=== PATIENT | male | born 1945 | race Caucasian/White ===

== ENCOUNTER 2017-06-05 10:19 | Emergency (ER) | payer MEDICARE, OTHER ==
[2017-06-05 10:32] VITALS: TEMP 98.1
--- NOTE | 2017-06-05 10:53 | C.PDOC ---
History Of Present Illness 71 y/o male presents to ED with c/o R shoulder pain, radiating down the right arm, and shooting up the right side of his neck for 2 weeks. He denies fall or injuries, fever, chest pain, SOB, or rashes. Time Seen by Provider: 06/05/17 10:42 Chief Complaint (Nursing): Upper Extremity Problem/Injury History Per: Patient History/Exam Limitations: no limitations Onset/Duration Of Symptoms: Days Current Symptoms Are (Timing): Still Present Quality: "Pain" Severity: Moderate Recent travel outside of the [place]: No Past Medical History Reviewed: Historical Data, Nursing Documentation, Vital Signs Vital Signs: Last Vital Signs Temp 98.1 F 06/05/17 10:30 Pulse 75 06/05/17 11:21 Resp 18 06/05/17 11:21 BP 145/75 06/05/17 11:21 Pulse Ox 96 06/05/17 13:06 - Medical History PMH: No Chronic Diseases Family History: States: No Known Family Hx - Social History Hx Tobacco Use: Yes Hx Alcohol Use: Yes Hx Substance Use: No - Immunization History Hx Influenza Vaccination: No Hx Pneumococcal Vaccination: No Review Of Systems Except As Marked, All Systems Reviewed And Found Negative. Constitutional: Negative for: Fever, Chills Cardiovascular: Negative for: Chest Pain Respiratory: Negative for: Cough, Shortness of Breath Gastrointestinal: Negative for: Nausea, Vomiting Musculoskeletal: Positive for: Neck Pain, Shoulder Pain, Arm Pain Skin: Negative for: Rash Neurological: Negative for: Weakness, Numbness, Headache Physical Exam - Physical Exam Appears: Well, Non-toxic, No Acute Distress, Other (comfortable) Skin: Normal Color, Warm, Dry Head: Normacephalic Oral Mucosa: Moist Neck: Normal, Normal ROM, No Midline Cervical Tenderness, No Paracervical Tenderness, No Step Off Deformity, Supple Chest: Symmetrical, No Tenderness Cardiovascular: Rhythm Regular Respiratory: Normal Breath Sounds, No Rales, No Rhonchi, No Wheezing Gastrointestinal/Abdominal: Normal Exam, Bowel Sounds, Soft, No Tenderness Back: Normal Inspection, No Vertebral Tenderness, No Paraspinal Tenderness Extremity: Normal ROM, No Tenderness, Capillary Refill (< 2 sec all digits ), No Deformity, No Swelling Extremity: Bilateral: Atraumatic, Normal Color And Temperature, Normal ROM Pulses: Left Radial: Normal, Right Radial: Normal Neurological/Psych: Oriented x3, Normal Motor, Normal Sensation ED Course And Treatment O2 Sat by Pulse Oximetry: 96 (RA) Pulse Ox Interpretation: Normal Progress Note: Patient given IM Toradol and PO Flexeril. Explained to patient that his symptoms are due to cervical radiculopathy. Reevaluation Time: 11:15 Reassessment Condition: Improved (Patient reassessed, pain has improved and he feels better. Patient given Rxs for Naprosyn, Flexeril and was instructed to follow up with PMD in 1-2 days. He understands if symptoms persist he should request MRI of Cspine from PMD. Patient understands he should return to ED if symptoms worsen.) Disposition Counseled Patient/Family Regarding: Diagnosis, Need For Followup, Rx Given - Disposition Referrals: Jhoan Laws MD [Medical Doctor] - Disposition: HOME/ ROUTINE Disposition Time: 11:15 Condition: STABLE Additional Instructions: FOLLOW UP WITH YOUR DOCTOR IN 1-2 DAYS USE MEDICATIONS DIRECTED IF SYMPTOMS PERSIST, HAVE YOUR DOCTOR SEND YOU FOR MRI OF CERVICAL SPINE RETURN TO ER IF SYMPTOMS WORSEN Prescriptions: Cyclobenzaprine [Flexeril] 10 mg PO BID PRN #15 tab PRN Reason: Muscle Spasm Naproxen 375 mg PO BID PRN #20 tablet PRN Reason: pain Instructions: Cervical Radiculopathy (ED) Forms: [employer] (Indonesian) Print Language: HEBREW - POA Present On Arrival: None - Clinical Impression Clinical Impression: Cervical radiculopathy - Scribe Statement The provider has reviewed the documentation as recorded by the Scribe SM All medical record entries made by the Scribe were at my direction and personally dictated by me. I have reviewed the chart and agree that the record accurately reflects my personal performance of the history, physical exam, medical decision making, and the department course for this patient. I have also personally directed, reviewed, and agree with the discharge instructions and disposition.
[2017-06-05 11:21] VITALS: BP 145/75; PULSE 75; RESP 18
[2017-06-05 13:06] VITALS: O2SAT 96
== END 2017-06-05 11:30 | disposition home or self-care (01) ==
LOC: C.ER 10:19
DX: M54.12 Radiculopathy, cervical region (principal)
CPT/HCPCS: 96372; 99284; J1885

== ENCOUNTER 2018-02-17 09:33 | Observation (INO) | payer MEDICARE, OTHER ==
[2018-02-17] MEDS ORDERED: Sodium Chloride 0.9% 1,000 ML IV ONE (10:30)
--- NOTE | 2018-02-17 10:32 | C.PDOC ---
History Of Present Illness 72 y/o male, w/PMhx of HTN and diabetes, presents to the ER complaining of dizziness which began in the morning today. Patient states that he was getting out of bed when he started to feel dizzy. Patient reports that he was unsteady and he felt like he was going to fall. He notes that the dizziness is worse with head movement. Denies having fever, CP, SOB,abdominal pain, trauma, tinutis, and syncope. Time Seen by Provider: 02/17/18 09:54 Chief Complaint (Nursing): Dizziness/Lightheaded History Per: Patient History/Exam Limitations: no limitations Onset/Duration Of Symptoms: Hrs Current Symptoms Are (Timing): Still Present Severity: Moderate Past Medical History Reviewed: Historical Data, Nursing Documentation, Vital Signs Vital Signs: Last Vital Signs Temp 98.4 F 02/18/18 16:06 Pulse 62 02/18/18 16:06 Resp 20 02/18/18 16:06 BP 124/75 02/18/18 16:06 Pulse Ox 99 02/18/18 16:56 - Medical History PMH: Diabetes, HTN Other Surgeries: Hx of surgeries Family History: States: No Known Family Hx - Social History Hx Tobacco Use: Yes Hx Alcohol Use: Yes Hx Substance Use: No - Immunization History Hx Influenza Vaccination: No Hx Pneumococcal Vaccination: No Review Of Systems Except As Marked, All Systems Reviewed And Found Negative. Constitutional: Negative for: Fever, Chills Cardiovascular: Negative for: Chest Pain Respiratory: Negative for: Shortness of Breath Gastrointestinal: Negative for: Abdominal Pain Neurological: Positive for: Dizziness Physical Exam - Physical Exam Appears: Non-toxic, No Acute Distress Skin: Normal Color, Warm, Dry Head: Atraumatic, Normacephalic Eye(s): bilateral: Normal Inspection, PERRL, EOMI, Other (No nystagnus) Nose: Normal Oral Mucosa: Moist Neck: Normal ROM, Supple Chest: Symmetrical Cardiovascular: Rhythm Regular Respiratory: Normal Breath Sounds, No Rales, No Rhonchi, No Wheezing Gastrointestinal/Abdominal: Normal Exam, Soft, No Tenderness, No Guarding, No Rebound Back: No CVA Tenderness Neurological/Psych: Oriented x3, Normal Speech, Normal Cognition, Normal Cranial Nerves (2-12 grossly intact), No Cerebellar Signs Gait: Unable To Assess ED Course And Treatment - Laboratory Results Result Diagrams: 02/17/18 10:44 07/09/18 10:44 ECG: Interpreted By Me (Dr Marc), Viewed By Me ECG Rhythm: Sinus Rhythm Rate From EC O2 Sat by Pulse Oximetry: 99 (RA) - Radiology CXR: Interpreted by Me, Viewed By Me CXR Interpretation: Yes: No Acute Disease - CT Scan/US CT- Head Other Rad Studies (CT/US): Read By Radiologist, Radiology Report Reviewed CT/US Interpretation: PROCEDURE: CT HEAD WITHOUT CONTRAST. HISTORY: R/O Bleed. COMPARISON: None available. TECHNIQUE: Axial computed tomography images were obtained through the head/brain without intravenous contrast. Radiation dose: Total exam DLP = 1175.8 mGy-cm. This CT exam was performed using one or more of the following dose reduction techniques: Automated exposure control, adjustment of the mA and/or kV according to patient size, and/ or use of iterative reconstruction technique. FINDINGS: HEMORRHAGE: No intracranial hemorrhage. BRAIN: No mass effect or edema. No atrophy or chronic microvascular ischemic changes. Left basal ganglia lacunar infarctions. VENTRICLES: Unremarkable. No hydrocephalus. CALVARIUM: Unremarkable. PARANASAL SINUSES: Unremarkable as visualized. No significant inflammatory changes. MASTOID AIR CELLS: Unremarkable as visualized. No inflammatory changes. OTHER FINDINGS: None. IMPRESSION: No acute intracranial pathology. Progress Note: Labs, EKG,CXR, CT- Head ordered and reviewed. Patient treated with Meclizine PO and IV Fluids. On re-evaluation, pt notes he still feels dizzy. Unable to ambulate. Case discussed with Dr Child, who admits for Dr Maxwell, agreed upon admission. Disposition - Disposition Disposition: HOSPITALIZED Disposition Time: 16:00 Condition: STABLE - Clinical Impression Clinical Impression: Dizziness - PA / INDEPENDENT AGENT MUSIC EDUCATION / Resident Statement MD/DO has reviewed & agrees with the documentation as recorded. - Scribe Statement The provider has reviewed the documentation as recorded by the Kiet Hobbs Provider Attestation All medical record entries made by the Scribe were at my direction and personally dictated by me. I have reviewed the chart and agree that the record accurately reflects my personal performance of the history, physical exam, medical decision making, and the department course for this patient. I have also personally directed, reviewed, and agree with the discharge instructions and disposition.
[2018-02-17 10:54] LABS: BASO % 0.8 % (0.0-2.0); EOS # 0.4 K/uL (0.0-0.7); EOS % 6.8 % (0.0-4.0); HEMOGLOBIN 14.1 g/dL (12.0-18.0); LYMPH # 2.2 K/uL (1.0-4.3); LYMPH % 39.4 % (20.0-40.0); MEAN CELL VOLUME 93.6 fL (80.0-94.0); MEAN CORPUSCULAR HEMOGLOBIN 32.1 pg (27.0-31.0); MEAN CORPUSCULAR HGB CONC 34.3 g/dL (33.0-37.0); MEAN PLATELET VOLUME 9.3 fL (7.2-11.7); MONO # 0.3 K/uL (0.0-0.8); MONO % 4.9 % (0.0-10.0); NEUT # 2.7 K/uL (1.8-7.0); NEUT % 48.1 % (50.0-75.0); RBC 4.4 Mil/uL (4.40-5.90); RED CELL DISTRIBUTION WIDTH 13.6 % (11.5-14.5); WHITE BLOOD COUNT 5.6 K/uL (4.8-10.8)
[2018-02-17 11:09] LABS: SQUAMOUS EPITHIAL < 1 /hpf (0-5); URINE BILIRUBIN NEGATIVE (NEGATIVE); URINE BLOOD NEGATIVE (NEGATIVE); URINE CLARITY Clear (Clear); URINE COLOR Yellow (YELLOW); URINE GLUCOSE (UA) 1+ mg/dL (Normal); URINE LEUKOCYTE ESTERASE NEG Leu/uL (Negative); URINE PROTEIN 1+ mg/dL (NEGATIVE); URINE UROBILINOGEN NORMAL mg/dL (0.2-1.0)
[2018-02-17 11:22] LABS: ALB/GLOB RATIO 1.5 (1.0-2.1); ALBUMIN 4.3 g/dL (3.5-5.0); ALT/SGPT 36 U/L (21-72); AST/SGOT 33 U/L (17-59); BLOOD UREA NITROGEN 16 mg/dL (9-20); CALCIUM 9.2 mg/dl (8.6-10.4); GFR AFRICAN-AMERICAN > 60; GFR NON-AFRICAN AMERICAN > 60
--- NOTE | 2018-02-17 11:24 | CT ---
PROCEDURE: CT HEAD WITHOUT CONTRAST. HISTORY: R/O Bleed COMPARISON: None available. TECHNIQUE: Axial computed tomography images were obtained through the head/brain without intravenous contrast. Radiation dose: Total exam DLP = 1175.8 mGy-cm. This CT exam was performed using one or more of the following dose reduction techniques: Automated exposure control, adjustment of the mA and/or kV according to patient size, and/or use of iterative reconstruction technique. FINDINGS: HEMORRHAGE: No intracranial hemorrhage. BRAIN: No mass effect or edema. No atrophy or chronic microvascular ischemic changes. Left basal ganglia lacunar infarctions. VENTRICLES: Unremarkable. No hydrocephalus. CALVARIUM: Unremarkable. PARANASAL SINUSES: Unremarkable as visualized. No significant inflammatory changes. MASTOID AIR CELLS: Unremarkable as visualized. No inflammatory changes. OTHER FINDINGS: None. IMPRESSION: No acute intracranial pathology.
[2018-02-17] MEDS ORDERED: Sodium Chloride 0.9% 1,000 ML ONE (11:29)
--- NOTE | 2018-02-17 11:30 | RAD ---
PROCEDURE: CHEST RADIOGRAPH, 1 VIEW HISTORY: SOB COMPARISON: None available. FINDINGS: LUNGS: Clear. PLEURA: No pneumothorax or pleural fluid seen. CARDIOVASCULAR: Atherosclerotic aortic calcifications. Cardiomediastinal silhouette enlarged. OSSEOUS STRUCTURES: Degenerative changes. VISUALIZED UPPER ABDOMEN: Normal. OTHER FINDINGS: None. IMPRESSION: No active disease.
[2018-02-17 11:33] LABS: CK-MB 1.19 ng/mL (0.0-3.38)
[2018-02-17 18:44] VITALS: RESP 20
--- NOTE | 2018-02-17 19:50 | CARD ---
APPROVED REPORT EKG Measurement Heart [id number] <Conclusion> Sinus bradycardia with 1st degree AV block Otherwise normal ECG
[2018-02-18] MEDS: Enoxaparin 40 mg Syringe SC SCH (09:14)
--- NOTE | 2018-02-18 13:23 | VASCLAB ---
Date of service: 02/18/2018 PROCEDURE: HISTORY: Dizziness COMPARISON: None available. TECHNIQUE: Grayscale and duplex Doppler evaluation of the cervical carotid and vertebral arteries were performed. The common carotid, carotid bifurcations and cervical Internal Carotid Artery (ICA) and proximal External Carotid Artery (ECA) were evaluated. The vertebral arteries were evaluated for gross patency and flow direction. Report prepared by Grayson Salas, BS, RVT FINDINGS: RIGHT CAROTID ARTERIES: 1. Common Carotid Artery: No significant focal plaque formation of the right common carotid artery. Maximum Peak Systolic velocity: 75 cm/sec: End-diastolic velocity 13 cm/sec. 2. Carotid Bifurcation: plaque formation. Maximum Peak Systolic velocity: 64 cm/sec: End-diastolic velocity 13 cm/sec. 3. Internal Carotid Artery: Plaque description: 3.1. Proximal Segment: Peak systolic velocity 62 cm/sec: End-diastolic velocity 21 cm/sec - % stenosis 0-15% 3.2. Middle Segment: Peak systolic velocity 69 cm/sec: End-diastolic velocity 22 cm/sec - % stenosis 0-15% 3.3. Distal Segment: Peak systolic velocity 49 cm/sec: End-diastolic velocity 18 cm/sec - % stenosis 0-15% 4. External Carotid Artery: No significant focal plaque formation. Peak systolic velocity 81 cm/sec 5. ICA/CCA Ratio: 0.9 LEFT CAROTID ARTERIES: 1. Common Carotid Artery: No significant focal plaque formation of the left common carotid artery. Maximum Peak Systolic velocity: 93 cm/sec: End-diastolic velocity 13 cm/sec. 2. Carotid Bifurcation: plaque formation. Maximum Peak Systolic velocity: 53 cm/sec: End-diastolic velocity 12 cm/sec. 3. Internal Carotid Artery: Plaque description: 3.1. Proximal Segment: Peak systolic velocity 59 cm/sec: End-diastolic velocity 19 cm/sec - % stenosis 0-15% 3.2. Middle Segment: Peak systolic velocity 78 cm/sec: End-diastolic velocity 29 cm/sec - % stenosis 0-15% 3.3. Distal Segment: Peak systolic velocity 46 cm/sec: End-diastolic velocity 18 cm/sec - % stenosis 0-15% 4. External Carotid Artery: No significant focal plaque formation. Peak systolic velocity 105 cm/sec 5. ICA/CCA Ratio: 0.9 VERTEBRAL ARTERIES: 1. Right Vertebral Artery: The right vertebral artery flow direction is antegrade. 2. Left Vertebral Artery: The left vertebral artery flow direction is antegrade. OTHER FINDINGS: 1. Right Brachial Blood pressure: 136 mmHg. 2. Left Brachial Blood pressure: 128 mmHg. IMPRESSION: RIGHT: Duplex scan does not suggest hemodynamically significant stenosis of the right extracranial carotid arteries. LEFT: Duplex scan does not suggest hemodynamically significant stenosis of the left extracranial carotid arteries.
--- NOTE | 2018-02-18 16:44 | CP.PCM.CON ---
History of Present Illness - History of Present Illness History of Present Illness: Dizziness Pulmonology consulted for history of smoking and possible sleep apnea HPI: 72 year old male with past medical history of hypertension and diabetes presented to the ER complaining of dizziness. Patient reports that this pain started this morning as he was getting out of bed. Patient reports that he felt the room spinning and that he was loosing his balance. Patient reports that he has never felt like this before. Patient denies any ringing in ears, daytime somnolence, chest pain, shortness of breath or sleeping problems. Patient reports that he currently feels better. Patient is in no acute distress. Patient is afebrile. PMH: hypertension and diabetes mellitus PSH: Kidney stone removal 37 years ago Meds: Glipizide 10 mg PO BIDAC Enoxaparin Sodium 40 mg SC Daily Losartan Potassium 50 mg PO Daily Metformin Hcl 1000 mg PO BIDCC Pioglitazone Hcl 15 mg PO Daily Social: Cigarettes- quit 10 years ago, Cigars - current, 1-2 day ROS: Constitutional: Patient denies fever and chills. Cardiovascular: Patient denies chest pain, palpitations. Respiratory: Patient denies shortness of breath, sough, snoring, daytime somnolence. Gastrointestinal: Patient denies nausea, vomiting, diarrhea. Neurological: Headache, AAO X 3, normal speech Physical Exam HEENT: Atraumatic, normocephalic, mucuous membranes moist Repiratory: Clear to auscultation bilaterally. No wheezing or rhonchi. No use of accessory muscles. Cardiovascular: +S1/ S2, regular rate and rhythm GI: Normal bowel sounds in all 4 quadrants, no tenderness, no distention Extremities: No LE edema Neurological: Alert, awake, oriented X3 Assessment: 72 year old male with past medical history of diabetes and hypertesion; patient' s presentation has no signs of sleep apnea. 1. Dizziness Status: Acute - patient denies nocturnal snoring or excessive sleepiness during daytime - PFTs as outpatient - Advised on smoking cessation - Follow up with neurology Past Patient History - Infectious Disease Hx of Infectious Diseases: None - Past Social History Smoking Status: Light Smoker < 10 Cigarettes Daily - CARDIAC Hx Hypertension: Yes - ENDOCRINE/METABOLIC Hx Endocrine Disorders: Yes Hx Diabetes Mellitus Type 2: Yes - PSYCHIATRIC Hx Substance Use: No - SURGICAL HISTORY Hx Surgeries: Yes Other/Comment: Kidney Stones - ANESTHESIA Hx Anesthesia: Yes Hx Anesthesia Reactions: No Hx Malignant Hyperthermia: No Meds Allergies/Adverse Reactions: Allergies Allergy/AdvReac Type Severity Reaction Status Date / Time Penicillins Allergy Verified 06/05/17 10:32 - Medications Medications: Current Medications Enoxaparin Sodium (Lovenox) 40 mg SC DAILY [facility] Last Admin: 02/18/18 09:14 Dose: Not Given Glipizide (Glucotrol) 10 mg PO BIDAC [facility] Last Admin: 02/18/18 08:38 Dose: 10 mg Losartan Potassium (Cozaar) 50 mg PO DAILY [facility] Last Admin: 02/18/18 09:13 Dose: 50 mg Metformin HCl (Glucophage) 1,000 mg PO BIDCC [facility] Last Admin: 02/18/18 08:38 Dose: 1,000 mg Pioglitazone HCl (Actos) 15 mg PO DAILY [facility] Last Admin: 02/18/18 09:13 Dose: 15 mg Results - Vital Signs Recent Vital Signs: Last Vital Signs Temp 98.4 F 02/18/18 16:06 Pulse 62 02/18/18 16:06 Resp 20 02/18/18 16:06 BP 124/75 02/18/18 16:06 Pulse Ox 99 02/18/18 16:06 - Labs Result Diagrams: 02/17/18 10:44 02/17/18 10:44 Labs: Laboratory Results - last 24 hr 02/17/18 02/18/18 02/18/18 21:03 06:35 11:06 POC Glucose (mg/dL) 261 H 202 H 353 H 02/18/18 16:34 POC Glucose (mg/dL) 181 H
--- NOTE | 2018-02-18 17:20 | MRI ---
Date of service: 02/18/2018 PROCEDURE: MRI BRAIN WITHOUT CONTRAST HISTORY: Dizziness COMPARISON: Comparison made with prior CT scan of the brain dated 02/17/2018. TECHNIQUE: Multiplanar, multisequence MR images of the brain were obtained without intravenous contrast enhancement. FINDINGS: HEMORRHAGE: No acute parenchymal, subarachnoid or extra-axial hemorrhage. No evidence of hemosiderin deposition seen on gradient echo weighted sequence. DWI: No evidence of an acute or early subacute infarction seen on diffusion imaging. . BRAIN PARENCHYMA: Few tiny focal areas of increased T2 signal seen in the frontal deep white matter both cerebral hemispheres likely representing tiny chronic lacunar type infarcts. There may also be some very minimal slightly confluent early periventricular white matter ischemic changes most conspicuously seen in the periatrial/very occipital horn white matter right greater than left. . No obvious parenchymal nor extra-axial mass or collection. Moderate generalized volume loss. VENTRICLES: No obstructive hydrocephalus. CRANIUM: Unremarkable. ORBITS: Orbits and contents are unremarkable. PARANASAL SINUSES/MASTOIDS: Very minimal mucosal thickening seen within in the ethmoid air complex the frontal sinus. VASCULAR SYSTEM: Visualized major vascular flow voids at skull base patent. OTHER FINDINGS: None. IMPRESSION: No evidence of acute intracranial hemorrhage or infarct. Suspect very minimal chronic white matter ischemic changes as described. . Moderate generalized volume loss.
--- NOTE | 2018-02-18 18:29 | CARD ---
APPROVED REPORT Date of service: 02/18/2018 EXAM: Two-dimensional and M-mode echocardiogram with Doppler and color Doppler. Other Information Quality : GoodRhythm : INDICATION Dizziness and Vertigo LV Function:Systolic RISK FACTORS Hypertension Diabetes 2D DIMENSIONS IVSd1.4 (0.7-1.1cm)LVDd4.1 (3.9-5.9cm) PWd0.9 (0.7-1.1cm)LVDs2.3 (2.5-4.0cm) FS (%) 44.7 %LVEF (%)76.4 (>50%) M-Mode DIMENSIONS Left Atrium (MM)3.36 (2.5-4.0cm)IVSd1.05 (0.7-1.1cm) Aortic Root3.93 (2.2-3.7cm)LVDd4.92 (4.0-5.6cm) Aortic Cusp Exc.2.39 (1.5-2.0cm)PWd1.09 (0.7-1.1cm) FS (%) 40 %LVDs2.93 (2.0-3.8cm) LVEF (%)71 (>50%) Mitral Valve MV E Foyzhvgx80.6cm/sMV A Vtirydnm29.6cm/sE/A ratio0.9 TDI E/Lateral E'0.0E/Medial E'0.0 Tricuspid Valve TR Peak [id number]/sTR Peak Gr.[id number] LEFT VENTRICLE The left ventricle is normal size. There is borderline concentric left ventricular hypertrophy. Left ventricle systolic function is normal. The Ejection Fraction is 60-65%. There is normal LV segmental wall motion. Transmitral Doppler flow pattern is Grade I-abnormal relaxation pattern. There is no ventricular septal defect visualized. RIGHT VENTRICLE The right ventricle is normal size. The right ventricular systolic function is normal. ATRIA The left atrium is mildly dilated. The right atrium size is normal. AORTIC VALVE The aortic valve is mildly sclerotic. The aortic valve is tri-cuspid. No aortic regurgitation is present. There is no aortic valvular stenosis. MITRAL VALVE The mitral valve is normal in structure. There is no evidence of mitral valve prolapse. There is no mitral valve regurgitation noted. TRICUSPID VALVE The tricuspid valve is normal in structure. There is trace tricuspid regurgitation. Right ventricular systolic pressure is estimated at less than 30 mmHg. There is no pulmonary hypertension. PULMONIC VALVE The pulmonic valve is not well visualized. There is no pulmonic valvular regurgitation. GREAT VESSELS The aortic root is normal in size. The ascending aorta is normal in size. The IVC is normal in size and collapses >50% with inspiration. PERICARDIAL EFFUSION There is no pericardial effusion. <Conclusion> Left ventricle systolic function is normal. The Ejection Fraction is 60-65%. Transmitral Doppler flow pattern is Grade I-abnormal relaxation pattern.
--- NOTE | 2018-02-18 18:49 | CON ---
DATE: 02/18/2018 CHIEF COMPLAINT: Dizziness. HISTORY OF PRESENT ILLNESS: This is a 72-year-old man with past medical history of hypertension, type 2 diabetes mellitus, complained of dizziness in terms of when he gets out of bed and starts walking, he gets spinning sensation of the room, felt like he is loosing his balance. His MRI of the brain showed no acute intracranial abnormalities. Carotid Doppler showed no significant hemodynamic stenosis. He had elevated blood sugars, otherwise being medically managed. He is on Glucophage, Glucotrol and Actos. No acute events overnight. His orthostatic vital signs are negative. ALLERGIES: TO PENICILLIN. PAST MEDICAL HISTORY: As above. PAST SURGICAL HISTORY: Kidney stone removed 37 years ago. MEDICATIONS: Reviewed by nurse reconciliation sheet. SOCIAL HISTORY: Quit cigarette smoking 10 years ago. Cigars one to two a day. No illicit drug or alcohol use. REVIEW OF SYSTEMS: A 14-point review of systems negative except per HPI. FAMILY HISTORY: Noncontributory. LABORATORY DATA: Sodium is 139, potassium 4.8, chloride 106, carbon dioxide 20, BUN of 16, creatinine of 0.8, and random glucose of 206. PHYSICAL EXAMINATION: VITAL SIGNS: Temperature 98.4, pulse rate of 62, blood pressure 124/75, respiratory rate 20, and oxygen saturation 99% on room air. GENERAL: The patient was sitting up in bed, in no acute distress. HEENT: Atraumatic and normocephalic. PERRLA. Extraocular muscles intact. NECK: Supple. No JVD. No adenopathy noted. LUNGS: Clear to auscultation. No adventitious sounds. HEART: S1 and S2, normal rate and rhythm. No murmurs, rubs, or gallops. ABDOMEN: Soft, nontender, and nondistended. Bowel sounds present. EXTREMITIES: No clubbing. No cyanosis. Peripheral pulses 2+ felt bilaterally. NEUROLOGIC: The patient is alert and oriented to person, place, month, and year. Speech is fluent without any errors. Cranial nerves II through XII are intact. Motor exam: Moves all extremities equally. No pronator drift is seen. Sensory exam: Decreased to light touch and pinprick up to the calves bilaterally. Decreased vibration towards the knees. DTRs are 2+, 1 at the ankles. Coordination: [id number] intact. No dysmetria noted. Gait is deferred for now. ASSESSMENT AND PLAN: This is a 72-year-old man with past medical history of type 2 diabetes mellitus, hypertension, presented with dizziness in terms of spinning sensation of the room when getting up from a sitting to a standing position or turning his head in right and left direction. His MRI of the brain showed no acute intracranial abnormalities, mild chronic ischemic changes. Carotid Doppler showed no significant hemodynamic stenosis. At this time, his dizziness seems to be more likely positional vertigo. RECOMMENDATIONS: I recommend, 1. Meclizine 25 mg p.o. b.i.d. p.r.n. 2. Vestibular therapy as an outpatient for vertigo. 3. salt restriction in diet and avoid sudden movements. Followup as an outpatient. Thank you for this consult. Jeremy Randall MD
--- NOTE | 2018-02-18 23:07 | CP.PCM.HP ---
History of Present Illness - History of Present Illness History of Present Illness: CC dizziness HPI: 72 y/o male, w/PMhx of HTN and diabetes, presents to the ER complaining of dizziness which began in the morning today. Patient states that he was getting out of bed when he started to feel dizzy. Patient reports that he was unsteady and he felt like he was going to fall. He notes that the dizziness is worse with head movement. Present on Admission - Present on Admission History of Uncontrolled Diabetes: Yes Review of Systems - Constitutional Constitutional: absent: Frequent Falls, Headache, Snoring - EENT Eyes: absent: As Per HPI, Blind Spots, Blurred Vision, Change in Vision, Decreased Night Vision, Diplopia, Discharge, Dry Eye, Exophthalmos, Floaters, Irritation, Itchy Eyes, Loss of Peripheral Vision, Pain, Photophobia, Requires Corrective Lenses, Sees Flashes, Spots in Vision, Tunnel Vision, Other Visual Disturbances, Loss of Vision, Other Ears: absent: As Per HPI, Decreased Hearing, Ear Discharge, Ear Pain, Tinnitus, Abnormal Hearing, Disequilibrium, Dizziness, Other Nose/Mouth/Throat: absent: As Per HPI, Epistaxis, Nasal Congestion, Nasal Discharge, Nasal Obstruction, Nasal Trauma, Nose Pain, Post Nasal Drip, Sinus Pain, Sinus Pressure, Bleeding Gums, Change in Voice, Dental Pain, Dry Mouth, Dysphagia, Halitosis, Hoarsness, Lip Swelling, Mouth Lesions, Mouth Pain, Odynophagia, Sore Throat, Throat Swelling, Tongue Swelling, Facial Pain, Neck Pain, Neck Mass, Other - Cardiovascular Cardiovascular: absent: Leg Edema - Respiratory Respiratory: absent: Wheezing - Gastrointestinal Gastrointestinal: absent: Nausea - Musculoskeletal Musculoskeletal: Abnormal Gait - Neurological Neurological: Dizziness Past Patient History - Infectious Disease Hx of Infectious Diseases: None - Past Social History Smoking Status: Light Smoker < 10 Cigarettes Daily - CARDIAC Hx Hypertension: Yes - ENDOCRINE/METABOLIC Hx Endocrine Disorders: Yes Hx Diabetes Mellitus Type 2: Yes - PSYCHIATRIC Hx Substance Use: No - SURGICAL HISTORY Hx Surgeries: Yes Other/Comment: Kidney Stones - ANESTHESIA Hx Anesthesia: Yes Hx Anesthesia Reactions: No Hx Malignant Hyperthermia: No Meds Allergies/Adverse Reactions: Allergies Allergy/AdvReac Type Severity Reaction Status Date / Time Penicillins Allergy Verified 06/05/17 10:32 Physical Exam - Constitutional Appears: Non-toxic - Head Exam Head Exam: NORMAL INSPECTION - Eye Exam Eye Exam: absent: Scleral icterus - ENT Exam ENT Exam: Mucous Membranes Moist - Neck Exam Neck exam: Positive for: Full Rom - Respiratory Exam Respiratory Exam: absent: Decreased Breath Sounds - Cardiovascular Exam Cardiovascular Exam: REGULAR RHYTHM - GI/Abdominal Exam GI & Abdominal Exam: Soft. absent: Tenderness - Extremities Exam Extremities exam: Negative for: calf tenderness, pedal edema - Neurological Exam Neurological exam: Alert, Oriented x3 Results - Vital Signs Recent Vital Signs: Last Vital Signs Temp 98.4 F 02/18/18 16:06 Pulse 62 02/18/18 16:06 Resp 20 02/18/18 16:06 BP 124/75 02/18/18 16:06 Pulse Ox 99 02/18/18 17:57 - Labs Result Diagrams: 02/17/18 10:44 02/17/18 10:44 Labs: Laboratory Results - last 24 hr 02/18/18 02/18/18 02/18/18 06:35 11:06 16:34 POC Glucose (mg/dL) 202 H 353 H 181 H 02/18/18 21:04 POC Glucose (mg/dL) 215 H Assessment & Plan - Assessment and Plan (Free Text) Assessment: Dizziness? etiol DDx Vasovagal Arrhythmias TIA Hypoglycemia Plan: ECHO Lexiscan Neuro consult Carotid ultrasound Pulmonary consult w/ Dr Mitchell TILT table test ENT consult - Date & Time Date: 02/18/18 Time: 08:00
[2018-02-19] MEDS: Enoxaparin 40 mg Syringe SC SCH (10:29)
[2018-02-19 17:23] VITALS: BP 131/81; TEMP 98.2; O2SAT 98
[2018-02-19 21:33] VITALS: PULSE 78
--- NOTE | 2018-02-19 21:57 | CARD ---
APPROVED REPORT Date of service: 02/19/2018 Protocol: SANAM Test Type: Stress Nuclear Test Indications: DIZZINESS Medications: LIST SCAN Medical History: DIZZINESS Target HR: 150 bpm Resting ECG: NSR Resting Heart Rate: 68 bpm Resting Blood Pressure: 120/80mmHg submaximum (85%): 128 bpm TEST SUMMARY PRETESTWARM-UP01:[id number]. EXERCISESTAGE 103:[id number]/.0. EXERCISESTAGE 203:[id number]/80.0. EXERCISESTAGE 301:[id number]/80.1. [id number]/74.0. POST EXERCISE Reason for Termination: Target heart rate achieved Target HR: No Max HR: 137 bpm 91% of Maximum Predicted HR: 150 bpm Exercise duration: 07:16 min:sec, 3 Stage Exercise capacity: 10.1METs Max Blood Pressure: 160/80mmHg Blood Pressure response to exercise: normal resting BP - appropriate response Heart Rate response to exercise: appropriate Chest Pain: Yes, CHEST TIGHTNESS Angina index: 0 Arrhythmia: Yes, VPB ST Change: No, none Deviation: 0 mm INTERPRETATION Stress EKG Conclusion: NEGATIVE EXERCISE STRESS TEST NORMAL BP RESPONSE TO EXERCISE FAIR EFFORT TOLERANCE NUCLEAR STUDIES TO BE READ SEPARATELY EXAM: Myocardial Perfusion STRESS/REST Imaging Protocol The imaging protocol used to acquire images was Stress Tc-99m/rest Tc-99m 1 day Rest Spect myocardial perfusion imaging was performed in supine position 45 minutes following the injection of 32.6 mCi of Tc-99 Myoview. Gated Stress Spect was performed 45 minutes after intravenous 13.1 mCi Tc-99 Myoview injection. The images were gated to evaluate regional wall motion and calculate ventricular ejection fraction.Images were reconstructed using backfilter projection method in short horizontal and verticle long axis. Spect slices were generated. RESTING DATA EDV73.40rxKU6.00L/min ESV22.00mlMyocardial Rhnt849.00g Av. Heart Rate59.00bpm EF70.00% STRESS DATA EDV60.22mmAC5.20L/min ESV12.00mlMyocardial Lkfb413.00g EF80.00% Regional WT score at stress:2.00 Regional WM score at stress:0.00 Summed WT score at stress:14.00 Av. Heart Rate68.00bpmSummed WM score at stress:0.00 LV Perf. Quant 17 Seg. SSS0.00 17 Seg. SRS0.00 17 Seg. SDS0.00 Stress Defect Extent (% LAD)0.00Rest Defect Extent (% LAD)0.00Rev. Defect Extent (% LAD)0.00 Stress Defect Extent (% LCX)0.00Rest Defect Extent (% LCX)0.00Rev. Defect Extent (% LCX)0.00 Stress Defect Extent (% RCA)0.00Rest Defect Extent (% RCA)0.00Rev. Defect Extent (% RCA)0.00 Stress Defect Extent (% SHAUN)0.00Rest Defect Extent (% SHAUN)0.00Rev. Defect Extent (% SHAUN)0.00 IMPRESSION Normal Myocardial Perfusion exercise stress study Left Ventricle LV Function:Left ventricle systolic function is normal. The Ejection Fraction is >70%. Regional Wall Motion:There is normal left ventricular wall motion. Metabolism/Perfusion There are no perfusion/metabolism defects. Conclusion 1. There is no stress-induced ischemia noted . 2. Left ventricle systolic function is normal. 3. The Ejection Fraction is >70%.
== END 2018-02-19 22:02 | disposition home or self-care (01) ==
LOC: C.ER 09:33 → C.9E 13:12 → C.5S 17:34
PROVIDERS: ADMIT Internal Medicine; ATTEND Internal Medicine
DX: I65.29 Occlusion and stenosis of unspecified carotid artery (principal); I10 Essential (primary) hypertension; F17.200 Nicotine dependence, unspecified, uncomplicated; E11.65 Type 2 diabetes mellitus with hyperglycemia; E11.649 Type 2 diabetes mellitus with hypoglycemia without coma; Z79.4 Long term (current) use of insulin
CPT/HCPCS: 70450; 70551; 71045; 78452; 80053; 81001; 82550; 82553; 82948; 84484; 85025; 93005; 93017; 93306; 93880; 96360; 97161; 99285; A9502; G0378; G8978; G8979; G8980; J2060; J7030